=== PATIENT | male | born 1950 | race Caucasian/White ===

== ENCOUNTER 2020-03-22 09:28 | Day surgery (SDC) | payer MEDICARE ==
[2020-03-19 08:59] VITALS: BMI 24.0
[2020-03-22] MEDS ORDERED: LACTATED RINGERS 1,000 ML IV SCH (09:38)
[2020-03-22 09:41] VITALS: RESP 16; TEMP 97.8
[2020-03-22] MEDS ORDERED: LIDOCAINE 1% (10MG/ML) FOR IV START INTRADERMA ONE (09:50)
[2020-03-22] MEDS ORDERED: PROPOFOL 10 MG/ML 20 ML VIAL IV ONE (10:52)
[2020-03-22] MEDS ORDERED: LACTATED RINGERS 1,000 ML IV ONE (11:38)
--- NOTE | 2020-03-22 12:07 | P.PCN ---
Date of Procedure: 03/22/20 Description of Procedure: Brief history: Patient is a pleasant 69-year-old male presenting for outpatient EGD and colonoscopy for GERD and rectal bleed. Patient reports heartburn well controlled on omeprazole therapy. No prior colonoscopy. No family history of colon cancer, however the patient has been noting painless bright red blood per rectum. Procedure performed: Esophagogastroduodenoscopy with biopsy Colonoscopy with polypectomy, Endo Clip placement 2 and tattoo Estimated blood loss: Minimal. Preoperative diagnosis: GERD, rectal bleed, no prior colonoscopy Anesthesia: [facility] [place] Procedure: After informed consent was obtained from the patient was brought into the endoscopy unit and IV sedation was administered by anesthesia under continuous monitoring. Initially upper endoscopy was done. The Olympus GF 190 video endoscope was inserted into the mouth and esophagus intubated without any difficulty and was gradually advanced into the stomach and duodenum and carefully examined. The bulb and second part of the duodenum appeared normal, With biopsies taken. The scope was then withdrawn into the stomach adequately insufflated with air and upon careful examination the antrum and body, cardia and fundus appeared normal, Except for some mild scattered erythema in the antrum and body suggestive of mild gastritis with biopsies taken. The scope was then withdrawn into the esophagus. The GE junction was located at 40 cm to the incisors, With biopsies taken. It appeared regular with no erythema erosions or ulcerations. Rest of the esophagus appeared normal. Patient tolerated the procedure well. At this time the patient continued to remain sedation. Initial digital rectal examination was normal. Olympus CF 190 video colonoscope was then inserted into the rectum and gradually advanced to the cecum without any difficulty. Careful examination was performed as the scope was gradually being withdrawn. The prep was excellent. The cecum, ascending colon, transverse colon, descending colon, sigmoid colon and rectumwere evaluated. The patient had a flat 5 mm transverse colon polyp removed with cold snare polypectomy. Pedunculated 15 mm descending colon polyp removed with hot snare polypectomy proximally 40 cm from the anal verge.. 2.5 cm pedunculated rectal polyp 25 cm from the anal verge removed with hot snare polypectomy with Endo Clip placed for hemostasis. 1 cm rectal polyp removed with cold snare polypectomy 20 cm from the anal verge and 1.5 cm rectal polyp removed with hot snare polypectomy 15 cm from the anal verge with Endo Clip placement for hemostasis. A large rectal mass extending from 15 cm from the anal verge to approximately 2 cm from the anal verge and encompassing approximate 75% of the lumen biopsied and with 2 mL of ink used to tattoo proximal to the rectal mass and at the distal end of the mass. Patient tolerated the procedure well. Impression: 1. Mild gastritis. Biopsies taken of the duodenum, antrum body and GE junction. 2. Non obstructing distal rectal mass, biopsied and tattooed. 5 polyps removed with a combination of cold snare polypectomy and hot snare polypectomy with Endo Clip placement 2 (please see body of report for location of polyp, size of polyp and technique of polypectomy). Recommendations: Findings of this examination were discussed with the patient as well as his . Okay to resume diet. Okay to resume medications. Withhold any anticoagulation therapy indefinitely at this time. Patient will need to be seen in the gastroenterology clinic next week and will likely need referral to hematology oncology and colorectal surgery for further evaluation.
[2020-03-22 12:24] VITALS: BP 174/93; PULSE 60
== END 2020-03-22 13:15 | disposition home or self-care (01) ==
LOC: ORWHC2ENDO 09:28
PROVIDERS: ATTEND Internal Medicine
DX: C18.6 Malignant neoplasm of descending colon (principal); C20 Malignant neoplasm of rectum; K29.50 Unspecified chronic gastritis without bleeding; D12.3 Benign neoplasm of transverse colon; D12.7 Benign neoplasm of rectosigmoid junction; I10 Essential (primary) hypertension; Z79.899 Other long term (current) drug therapy; Z98.890 Other specified postprocedural states; K21.00 Gastro-esophageal reflux disease with esophagitis, without bleeding
CPT/HCPCS: 88305; 88342; 45385; 43239; 45381; J2704; 45382

== ENCOUNTER → 2020-04-02 | Outpatient (CLI) | payer MEDICARE ==
--- NOTE | 2020-04-05 17:14 | PE ---
EXAMINATION TYPE: PET CT fusion skull to thigh DATE OF EXAM: 04/02/2020 COMPARISON: No prior examinations at this facility. Prior PET/CT: No prior PET/CT. HISTORY: Colorectal cancer TECHNIQUE: Following the intravenous administration of 11.75 mCi of F-18 FDG, whole body images are performed from the skull base to the midthigh. Images are reviewed on the computer in the coronal, a xial, and sagittal planes. Reconstructed rotating images are created on independent workstation and reviewed on the computer. A localization and attenuation correction CT is performed in conjunction with the PET scan. DLP: 374.16 mGycm SCAN: Initial Blood glucose: 86 mg/dL Average Mediastinum SUV: 1.36 Average Liver SUV: 1.92. This was obtained the lower right lobe liver. FINDINGS: NECK: Small focus of radiotracer is first with some beam hardening artifact at the anterior apex sub mental region. This could be some periodontal disease. PET image 29 SUV value 3.64. THORAX: No abnormal uptake ABDOMEN: There is intense uptake within the ill-defined hepatic mass within the posterior right lobe liver. Example SUV 16.54. Some mild uptake is also present at the right tip of the liver. Mild uptake along the anterior border of the right lobe liver may be present as well. No definite uptake within the left lobe liver. PELVIS: There is intense uptake within the rectosigmoid junction thickening compatible with neoplasm. This has an SUV value of 19.4. OSSEOUS STRUCTURES: No abnormal uptake LOCALIZATION CT: Coronary artery calcification is noted. Large ill-defined hepatic mass right lobe li racheal is evident CT examination. Calcifications are scattered within the liver. There is diffuse thicke serenity at the rectosigmoid junction and related to the patient's reported cancer. COMPARISON: No comparison images IMPRESSION: 1. Intense uptake at the rectosigmoid junction compatible with patient's reported colorectal cancer. 2. A large ill-defined intense uptake through the right lobe liver compatible with metastatic disease .
== END | disposition home or self-care (01) ==
LOC: RADPETMAIN 12:00
PROVIDERS: ATTEND Internal Medicine
DX: C20 Malignant neoplasm of rectum (principal); R93.3 Abnormal findings on diagnostic imaging of other parts of digestive tract; R93.2 Abnormal findings on diagnostic imaging of liver and biliary tract
CPT/HCPCS: 78815; A9552